=== PATIENT | female | born 1990 | race Caucasian/White ===

== ENCOUNTER 2021-08-20 06:33 | Day surgery (SDC) | payer MEDICAID, OTHER ==
[2021-08-20] MEDS ORDERED: Lactated Ringers 1,000 ML IV SCH (07:00)
[2021-08-20] MEDS ORDERED: Midazolam 1 MG/ML 2 ML SDV ONE (07:21)
[2021-08-20] MEDS ORDERED: fentaNYL 100 MCG/2 ML SDV ONE (07:21)
[2021-08-20] MEDS ORDERED: Propofol 200 MG/20 ML SDV ONE (07:22)
[2021-08-20 09:45] VITALS: BP 100/52; PULSE 56
== END 2021-08-20 09:40 | disposition home or self-care (01) ==
LOC: JP.SDS 06:33
PROVIDERS: ATTEND Surgery
DX: K21.00 Gastro-esophageal reflux disease with esophagitis, without bleeding (principal); K22.89 Other specified disease of esophagus; F41.9 Anxiety disorder, unspecified
CPT/HCPCS: 88305; J2250; J2704; J3010; J7120